=== PATIENT | female | born 1980 | race Caucasian/White ===

== ENCOUNTER → 2020-09-24 | Outpatient (CLI) | payer OTHER ==
[~2020-09-24] MED LIST: CYMBALTA 20 MG20 MG PO; ECOTRIN81 MG PO; MICROZIDE12.5 MG PO; NITROGLYCERIN0.4 MG SL
== END ==
LOC: KOH-I 10:33
DX: M47.22 Other spondylosis with radiculopathy, cervical region (principal); M54.9 Dorsalgia, unspecified; M51.36 Other intervertebral disc degeneration, lumbar region; M43.8X6 Other specified deforming dorsopathies, lumbar region
CPT/HCPCS: 72040; 72070; 72100; 73560

== ENCOUNTER → 2020-10-31 | Outpatient (CLI) | payer OTHER | LOC: EXRD 10:47 | DX: I73.9 Peripheral vascular disease, unspecified (principal); Z72.0 Tobacco use | CPT/HCPCS: 93922; 93925 ==

== ENCOUNTER → 2020-12-08 | Outpatient (CLI) | payer OTHER | LOC: KOH-I 08:00 | DX: K21.9 Gastro-esophageal reflux disease without esophagitis (principal); R11.0 Nausea; K82.0 Obstruction of gallbladder | CPT/HCPCS: 76705 ==

== ENCOUNTER → 2021-01-20 | Outpatient (CLI) | payer OTHER | LOC: NM 08:31 | DX: K21.9 Gastro-esophageal reflux disease without esophagitis (principal); M54.9 Dorsalgia, unspecified; R11.0 Nausea | CPT/HCPCS: 78227; A9537; J2805 ==

== ENCOUNTER → 2021-07-06 | Outpatient (CLI) | payer OTHER | LOC: MAMO 14:55 | DX: Z12.31 Encounter for screening mammogram for malignant neoplasm of breast (principal) | CPT/HCPCS: 77063; 77067 ==